=== PATIENT | female | born 1990 | race Caucasian/White ===

== ENCOUNTER 2021-10-22 23:49 | Emergency (ER) | payer OTHER, SELFPAY | END 2021-10-23 03:04 | disposition home or self-care (01) | LOC: CSHERS 23:49 | DX: O00.90 Unspecified ectopic pregnancy without intrauterine pregnancy (principal); F17.290 Nicotine dependence, other tobacco product, uncomplicated | CPT/HCPCS: 96372; 99284; J9250 ==